=== PATIENT | female | born 1980 | race Caucasian/White ===

== ENCOUNTER → 2017-09-12 | Outpatient (CLI) | payer OTHER ==
[2017-09-12 19:06] LABS: BASO # 0.1 10^3/uL (0.0-0.2); EOS # 0.3 10^3/uL (0.0-0.50); EOS % 2.7 % (0.0-3.0); HEMATOCRIT 46.3 % (36.0-47.0); HEMOGLOBIN 15.1 g/dl (12.0-16.0); IMMATURE GRANULOCYTE % 0.3 % (0-0); LYMPH # 2.6 10^3/uL (1.5-4.5); LYMPH % 28.3 % (24.0-44.0); MEAN CORPUSCULAR HEMOGLOBIN 30.4 pg (27.0-33.0); MEAN CORPUSCULAR HGB CONC 32.6 g/dl (32.0-36.5); MEAN CORPUSCULAR VOLUME 93.2 fl (80.0-96.0); MONO # 0.6 10^3/uL (0.0-0.8); MONO % 6.4 % (0.0-5.0); NEUTROPHILS # 5.7 10^3/uL (1.8-7.7); NEUTROPHILS % 61.3 % (36.0-66.0); PLATELET COUNT, AUTOMATED 237 10^3/uL (150-450); RED BLOOD COUNT 4.97 10^6/uL (4.00-5.40); WHITE BLOOD COUNT 9.2 10^3/uL (4.0-10.0)
[2017-09-12 19:22] LABS: URIC ACID 4.8 MG/DL (2.6-6.0)
== END ==
LOC: M WUC 12:20
DX: M79.644 Pain in right finger(s) (principal)

== ENCOUNTER 2018-06-20 15:42 | Emergency (ER) | payer SELFPAY, OTHER ==
[2018-06-20] MEDS: MORPHINE 4 MG/ML 1ML VIAL/SYRINGE (J2270) IV (17:16)
[2018-06-20 17:31] LABS: BASO # 0.1 10^3/uL (0.0-0.2); BASO % 0.8 % (0.0-1.0); EOS # 0.2 10^3/uL (0.0-0.50); HEMATOCRIT 43.8 % (36.0-47.0); HEMOGLOBIN 14.4 g/dl (12.0-15.5); IMMATURE GRANULOCYTE % 0.4 % (0-3.0); LYMPH # 2.9 10^3/uL (1.5-4.5); LYMPH % 29.5 % (24.0-44.0); MEAN CORPUSCULAR HEMOGLOBIN 30.3 pg (27.0-33.0); MEAN CORPUSCULAR HGB CONC 32.9 g/dl (32.0-36.5); MONO # 0.6 10^3/uL (0.0-0.8); MONO % 5.8 % (0.0-5.0); NEUTROPHILS % 61.5 % (36.0-66.0); PLATELET COUNT, AUTOMATED 364 10^3/uL (150-450); RED BLOOD COUNT 4.76 10^6/uL (4.00-5.40); RED CELL DISTRIBUTION WIDTH 12.3 % (11.5-14.5); WHITE BLOOD COUNT 9.8 10^3/uL (4.0-10.0)
[2018-06-20 17:53] LABS: ALBUMIN 3.8 GM/DL (3.2-5.2); ALBUMIN/GLOBULIN RATIO 1.06 (1.00-1.93); ALKALINE PHOSPHATASE 77 U/L (45-117); ALT/SGPT 30 U/L (12-78); ANION GAP 8 MEQ/L (8-16); AST/SGOT 15 U/L (7-37); BILIRUBIN,DIRECT < 0.1 MG/DL (0.0-0.2); BILIRUBIN,TOTAL 0.4 MG/DL (0.2-1.0); BLOOD UREA NITROGEN 8 MG/DL (7-18); CALCIUM LEVEL 8.4 MG/DL (8.5-10.1); CARBON DIOXIDE LEVEL 26 MEQ/L (21-32); CHLORIDE LEVEL 106 MEQ/L (98-107); CREATININE FOR GFR 0.72 MG/DL (0.55-1.30); GLOMERULAR FILTRATION RATE > 60.0 (>60); GLUCOSE, FASTING 86 MG/DL (70-100); LIPASE 106 U/L (73-393); POTASSIUM SERUM 4.1 MEQ/L (3.5-5.1); SODIUM LEVEL 140 MEQ/L (136-145); TOTAL PROTEIN 7.4 GM/DL (6.4-8.2)
== END 2018-06-20 17:55 | disposition home or self-care (01) ==
LOC: M ED 15:42
DX: S20.211A Contusion of right front wall of thorax, initial encounter (principal); R10.11 Right upper quadrant pain; W01.190A Fall on same level from slipping, tripping and stumbling with subsequent striking against furniture, initial encounter; Y92.098 Other place in other non-institutional residence as the place of occurrence of the external cause; R51 Headache; J45.909 Unspecified asthma, uncomplicated; F41.9 Anxiety disorder, unspecified; F32.9 Major depressive disorder, single episode, unspecified; M06.9 Rheumatoid arthritis, unspecified; Z85.43 Personal history of malignant neoplasm of ovary; F17.200 Nicotine dependence, unspecified, uncomplicated; Z88.8 Allergy status to other drugs, medicaments and biological substances; Z91.040 Latex allergy status; Z91.041 Radiographic dye allergy status
CPT/HCPCS: J2270

== ENCOUNTER 2018-06-23 08:51 | Emergency (ER) | payer SELFPAY ==
[2018-06-23] MEDS: PERCOCET 5MG/325MG TAB PO (09:48)
== END 2018-06-23 10:48 | disposition home or self-care (01) ==
LOC: M ED 08:51
DX: S20.211A Contusion of right front wall of thorax, initial encounter (principal); W19.XXXA Unspecified fall, initial encounter; Y92.89 Other specified places as the place of occurrence of the external cause; K21.9 Gastro-esophageal reflux disease without esophagitis; R51 Headache; Z87.440 Personal history of urinary (tract) infections; F17.210 Nicotine dependence, cigarettes, uncomplicated; Z88.8 Allergy status to other drugs, medicaments and biological substances; Z91.041 Radiographic dye allergy status; Z91.040 Latex allergy status
CPT/HCPCS: 71101

== ENCOUNTER 2019-03-23 09:14 | Emergency (ER) | payer BC, OTHER ==
[~2019-03-23] VITALS: Ht 152.4 cm; Wt 72.7 kg
[~2019-03-23 09:14] MED LIST: ACET-683 PO; ALBUTEROL; PAXI40TA; PERC5TAB12 PO; ULTR50TA8 PO; [UNRECOGNIZED DRUG - CODE]
[2019-03-23] MEDS ORDERED: NS 1,000 ML IV ONE (09:30)
[2019-03-23] MEDS ORDERED: KETOROLAC 30 MG/ML VIAL (J1885) IV ONE (09:45)
[2019-03-23 10:42] LABS: BASO # 0.1 10^3/uL (0.0-0.2); BASO % 0.7 % (0.0-1.0); EOS # 0.1 10^3/uL (0.0-0.50); EOS % 1.3 % (0.0-3.0); HEMATOCRIT 45.5 % (36.0-47.0); HEMOGLOBIN 15.2 g/dl (12.0-15.5); LYMPH # 1.4 10^3/uL (1.5-4.5); MEAN CORPUSCULAR HEMOGLOBIN 31.3 pg (27.0-33.0); MEAN CORPUSCULAR HGB CONC 33.4 g/dl (32.0-36.5); MEAN CORPUSCULAR VOLUME 93.6 fl (80.0-96.0); MONO # 0.9 10^3/uL (0.0-0.8); MONO % 8.5 % (0.0-5.0); NEUTROPHILS # 8.2 10^3/uL (1.8-7.7); NEUTROPHILS % 75.9 % (36.0-66.0); PLATELET COUNT, AUTOMATED 251 10^3/uL (150-450); RED BLOOD COUNT 4.86 10^6/uL (4.00-5.40); WHITE BLOOD COUNT 10.8 10^3/uL (4.0-10.0)
[2019-03-23 10:57] LABS: HCG, SERUM QUALITATIVE NEGATIVE (NEGATIVE)
[2019-03-23 11:13] LABS: BLOOD UREA NITROGEN 10 MG/DL (7-18); CALCIUM LEVEL 8.6 MG/DL (8.5-10.1); CARBON DIOXIDE LEVEL 27 MEQ/L (21-32); CHLORIDE LEVEL 107 MEQ/L (98-107); CREATININE FOR GFR 0.73 MG/DL (0.55-1.30); GLOMERULAR FILTRATION RATE > 60.0 (>60); GLUCOSE, FASTING 82 MG/DL (70-100); MAGNESIUM LEVEL 2.1 MG/DL (1.8-2.4); SODIUM LEVEL 141 MEQ/L (136-145)
[2019-03-23 14:30] VITALS: BP 122/70
--- NOTE | 2019-03-23 20:59 | ECGEPIP ---
[facility] - ED Test Date: 2019-03-23 Pat Name: OLIVIA MITCHELL Department: Room: - Gender: Female [employer]: : 1980 Requested By: Deyanira Jones Order Number: [id number] Reading MD: Naldo Johnson Measurements Intervals [place] Rate: 88 P: 60 OH: 141 QRS: 29 QRSD: 78 T: 37 QT: 363 QTc: 441 Interpretive Statements SINUS RHYTHM BASELINE ARTIFACT AFFECTS INTERPRETATION NO PRIORS FOR COMPARISON Electronically Signed on 03-23-2019 20:59:32 EDT by Naldo Johnson
== END 2019-03-23 14:48 | disposition home or self-care (01) ==
LOC: M ED 09:14 → EDBD 09:14 → M ED 14:48
DX: L55.9 Sunburn, unspecified (principal); R55 Syncope and collapse; Z88.8 Allergy status to other drugs, medicaments and biological substances; Z91.040 Latex allergy status; Z91.041 Radiographic dye allergy status; F17.210 Nicotine dependence, cigarettes, uncomplicated
CPT/HCPCS: 36415; 80048; 83735; 84443; 84703; 85025; 93005; 93041; 94760; 96361; 96374; 99285; J1885

== ENCOUNTER 2019-09-24 10:45 | Emergency (ER) | payer BC, OTHER ==
[~2019-09-24] VITALS: Ht 154.9 cm; Wt 81.2 kg
[2019-09-24 11:55] LABS: BASO # 0.1 10^3/uL (0.0-0.2); BASO % 1.4 % (0.0-1.0); EOS # 0.3 10^3/uL (0.0-0.5); EOS % 3.8 % (0.0-3.0); HEMATOCRIT 46.9 % (36.0-47.0); HEMOGLOBIN 15.6 g/dl (12.0-15.5); LYMPH % 23.8 % (24.0-44.0); MEAN CORPUSCULAR HEMOGLOBIN 30.1 pg (27.0-33.0); MEAN CORPUSCULAR HGB CONC 33.3 g/dl (32.0-36.5); MEAN CORPUSCULAR VOLUME 90.5 fl (80.0-96.0); MONO # 0.5 10^3/uL (0.0-0.8); MONO % 5.8 % (0.0-5.0); NEUTROPHILS # 5.5 10^3/uL (1.5-8.5); NEUTROPHILS % 64.8 % (36.0-66.0); PLATELET COUNT, AUTOMATED 347 10^3/uL (150-450); RED BLOOD COUNT 5.18 10^6/uL (4.00-5.40); WHITE BLOOD COUNT 8.4 10^3/uL (4.0-10.0)
[2019-09-24 12:23] LABS: ALBUMIN 3.7 GM/DL (3.2-5.2); ALT/SGPT 46 U/L (12-78); BILIRUBIN,DIRECT < 0.1 MG/DL (0.0-0.2); BILIRUBIN,TOTAL 0.2 MG/DL (0.2-1.0); BLOOD UREA NITROGEN 9 MG/DL (7-18); CARBON DIOXIDE LEVEL 23 MEQ/L (21-32); CHLORIDE LEVEL 106 MEQ/L (98-107); CK-MB VALUE MASS < 1.0 NG/ML (<3.6); CPK CREATINE PHOSPHOKINASE 76 U/L (26-192); CREATININE FOR GFR 0.79 MG/DL (0.55-1.30); GLOMERULAR FILTRATION RATE > 60.0 (>58); GLUCOSE, FASTING 89 MG/DL (70-100); LIPASE 107 U/L (73-393); MB/CK RELATIVE INDEX 1.32 (< OR =4); POTASSIUM SERUM 4.3 MEQ/L (3.5-5.1); SODIUM LEVEL 138 MEQ/L (136-145); TOTAL PROTEIN 7.4 GM/DL (6.4-8.2); TROPONIN I < 0.02 NG/ML (< 0.10)
[2019-09-24 13:10] LABS: INFLUENZA A AMPLIFICATION NEGATIVE (NEGATIVE); INFLUENZA B AMPLIFICATION NEGATIVE (NEGATIVE)
[2019-09-24] MEDS ORDERED: ONDANSETRON 4MG/2ML VIAL (J2405) IV ONE (13:15)
[2019-09-24] MEDS ORDERED: NS 1,000 ML IV ONE (13:15)
[2019-09-24] MEDS ORDERED: IBUPROFEN 600 MG TAB PO ONE (13:30)
--- NOTE | 2019-09-24 14:28 | REP ---
Portable chest, 01:53 p.m., single AP view with the patient upright: Comparison is 02/24/2010. The lung zamudio are clear. The cardiac size is normal. The grisel, mediastinum, and skeletal structures are unremarkable. Impression: Negative portable chest. There is no interval change. Electronically Signed by Waqas Daniels MD 09/24/2019 02:19 P
[2019-09-24] MEDS ORDERED: ONDA4TAB6 PO (14:46)
[2019-09-24] MEDS ORDERED: KETO10TAB PO (14:46)
[2019-09-24 14:56] VITALS: BP 134/69
--- NOTE | 2019-09-25 20:26 | ECGEPIP ---
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
== END 2019-09-24 14:59 | disposition home or self-care (01) ==
LOC: M ED 10:45
DX: J06.9 Acute upper respiratory infection, unspecified (principal); B34.9 Viral infection, unspecified; R11.2 Nausea with vomiting, unspecified; J45.909 Unspecified asthma, uncomplicated; K21.9 Gastro-esophageal reflux disease without esophagitis; M06.9 Rheumatoid arthritis, unspecified; Z85.43 Personal history of malignant neoplasm of ovary; Z85.42 Personal history of malignant neoplasm of other parts of uterus; F17.210 Nicotine dependence, cigarettes, uncomplicated; Z91.040 Latex allergy status; Z91.041 Radiographic dye allergy status; Z88.9 Allergy status to unspecified drugs, medicaments and biological substances; Z79.899 Other long term (current) drug therapy
CPT/HCPCS: 36415; 71045; 80048; 80076; 82550; 82553; 83690; 84484; 85025; 85379; 87502; 93005; 93041; 96361; 96374; 99285; J2405

== ENCOUNTER 2020-06-27 04:44 | Emergency (ER) | payer BC, OTHER ==
[~2020-06-27] VITALS: Ht 152.4 cm; Wt 81.8 kg
[~2020-06-27 04:44] MED LIST changes: +KETO10TAB PO; +ONDA4TAB6 PO
[2020-06-27] MEDS ORDERED: IBUPROFEN 600MG TAB PO ONE (06:15)
[2020-06-27] MEDS ORDERED: oxyCODONE 5MG TAB PO ONE (06:15)
[2020-06-27 06:23] VITALS: BP 134/72
== END 2020-06-27 07:25 | disposition home or self-care (01) ==
LOC: M ED 04:44
DX: K02.9 Dental caries, unspecified (principal); F17.200 Nicotine dependence, unspecified, uncomplicated; Z88.8 Allergy status to other drugs, medicaments and biological substances; Z91.040 Latex allergy status; Z91.041 Radiographic dye allergy status

== ENCOUNTER → 2020-11-03 | Outpatient (CLI) | payer BC ==
--- NOTE | 2020-11-03 15:56 | REPMRS ---
Patient History The patient states she has not had a clinical breast exam in over a year. Patient has history of other cancer at age 26. Family history of endometrial cancer in mother, breast cancer in maternal grandmother, lung cancer in father. 3D TOMOSYNTHESIS WAS PERFORMED. [facility] lifetime risk for [facility] cancer is 13.7%. [facility]. Digital Woman Screen Mammo: November 03, 2020 - Exam #: [id number] Bilateral CC and MLO view(s) were taken. Technologist: Jolanta Brown, Technologist No prior studies available for comparison. FINDINGS: There are scattered fibroglandular densities. There is a mild amount of residual fibroglandular tissue which is fairly symmetric. There is no dominant mass, architectural distortion, or clustered microcalcification suggestive of malignancy. Assessment: BI-RADS/ACR category 1 mammogram. Negative Mammogram. Recommendation Routine screening mammogram in 1 year (for women over age 40). This mammogram was interpreted with the aid of an FDA-approved computer-aided dectection system. Electronically Signed By: Waqas Cowart MD 11/03/20 [id number]
== END ==
LOC: M WHC 14:57
PROVIDERS: ATTEND Nurse Practitioner Family
DX: Z12.31 Encounter for screening mammogram for malignant neoplasm of breast (principal); Z85.9 Personal history of malignant neoplasm, unspecified; Z80.49 Family history of malignant neoplasm of other genital organs; Z80.1 Family history of malignant neoplasm of trachea, bronchus and lung

== ENCOUNTER → 2021-04-28 | Outpatient (CLI) | payer BC, OTHER ==
[2021-04-28 10:39] LABS: BASO # 0.1 10^3/uL (0.0-0.2); BASO % 0.9 % (0.0-1.0); EOS # 0.4 10^3/uL (0.0-0.5); EOS % 3.7 % (0.0-3.0); HEMATOCRIT 48.7 % (36.0-47.0); HEMOGLOBIN 16.2 g/dl (12.0-15.5); LYMPH # 2.2 10^3/uL (1.5-5.0); LYMPH % 22.8 % (24.0-44.0); MEAN CORPUSCULAR HEMOGLOBIN 29.9 pg (27.0-33.0); MEAN CORPUSCULAR HGB CONC 33.3 g/dl (32.0-36.5); MEAN CORPUSCULAR VOLUME 89.9 fl (80.0-96.0); MONO # 0.7 10^3/uL (0.0-0.8); MONO % 7.2 % (2.0-8.0); NEUTROPHILS # 6.2 10^3/uL (1.5-8.5); NEUTROPHILS % 64.9 % (36.0-66.0); PLATELET COUNT, AUTOMATED 278 10^3/uL (150-450); RED BLOOD COUNT 5.42 10^6/uL (4.00-5.40); WHITE BLOOD COUNT 9.6 10^3/uL (4.0-10.0)
[2021-04-28 11:04] LABS: ALBUMIN 3.4 GM/DL (3.2-5.2); ALT/SGPT 42 U/L (12-78); BILIRUBIN,TOTAL 0.3 MG/DL (0.2-1.0); BLOOD UREA NITROGEN 14 MG/DL (7-18); CALCIUM LEVEL 8.4 MG/DL (8.5-10.1); CARBON DIOXIDE LEVEL 26 MEQ/L (21-32); CHLORIDE LEVEL 109 MEQ/L (98-107); CHOLESTEROL LEVEL 259 MG/DL (<200); CHOLESTEROL RISK RATIO 5.078 (<5); CREATININE FOR GFR 0.74 MG/DL (0.55-1.30); FREE T4 0.87 NG/DL (0.76-1.46); GLOMERULAR FILTRATION RATE > 60.0 (>58); GLUCOSE, FASTING 89 MG/DL (70-100); HDL CHOLESTEROL 51 MG/DL (>40); LDL CHOLESTEROL 167 MG/DL (<100); MAGNESIUM LEVEL 2.4 MG/DL (1.8-2.4); NON-HDL-C 208 MG/DL; POTASSIUM SERUM 4.1 MEQ/L (3.5-5.1); SODIUM LEVEL 139 MEQ/L (136-145); TRIGLYCERIDES LEVEL 205 MG/DL (<150)
[2021-04-28 11:56] LABS: TOTAL 25(OH) VITAMIN D 18.1 NG/ML (30.0-100.0)
== END ==
LOC: M LAB 09:32
PROVIDERS: ATTEND Nurse Practitioner Family
DX: F41.8 Other specified anxiety disorders (principal); Z13.220 Encounter for screening for lipoid disorders; R25.2 Cramp and spasm

== ENCOUNTER 2021-05-03 02:06 | Observation (INO) | payer BC, OTHER ==
[~2021-05-03] VITALS: Ht 154.9 cm; Wt 81.9 kg
[2021-05-03] MEDS ORDERED: ALBU8.5H PO (02:18)
[2021-05-03] MEDS ORDERED: VALA1TAB5 PO (02:18)
[2021-05-03] MEDS ORDERED: LEXA1TAB PO (02:18)
[2021-05-03 03:57] LABS: BASO # 0.1 10^3/uL (0.0-0.2); BASO % 0.8 % (0.0-1.0); EOS # 0.4 10^3/uL (0.0-0.5); EOS % 3.8 % (0.0-3.0); HEMOGLOBIN 14.7 g/dl (12.0-15.5); LYMPH # 2.5 10^3/uL (1.5-5.0); LYMPH % 21.4 % (24.0-44.0); MEAN CORPUSCULAR HEMOGLOBIN 30.2 pg (27.0-33.0); MEAN CORPUSCULAR HGB CONC 33.4 g/dl (32.0-36.5); MEAN CORPUSCULAR VOLUME 90.5 fl (80.0-96.0); MONO # 0.8 10^3/uL (0.0-0.8); MONO % 6.8 % (2.0-8.0); NEUTROPHILS # 7.8 10^3/uL (1.5-8.5); NEUTROPHILS % 66.7 % (36.0-66.0); PLATELET COUNT, AUTOMATED 315 10^3/uL (150-450); RED BLOOD COUNT 4.86 10^6/uL (4.00-5.40); WHITE BLOOD COUNT 11.7 10^3/uL (4.0-10.0)
[2021-05-03] MEDS ORDERED: GI COCKTAIL 50ML BTL(HYOSCYAMINE/MAALOX/LIDOCAINE VISCOUS)(1:3:1) PO ONE (04:05)
[2021-05-03] MEDS ORDERED: PANTOPRAZOLE 40MG VIAL (C9113 PER 1) IV ONE (04:05)
[2021-05-03 04:23] LABS: ALBUMIN 3.1 GM/DL (3.2-5.2); ALT/SGPT 42 U/L (12-78); BILIRUBIN,DIRECT < 0.1 MG/DL (0.0-0.2); BILIRUBIN,TOTAL 0.2 MG/DL (0.2-1.0); BLOOD UREA NITROGEN 13 MG/DL (7-18); CALCIUM LEVEL 8.9 MG/DL (8.5-10.1); CARBON DIOXIDE LEVEL 26 MEQ/L (21-32); CHLORIDE LEVEL 110 MEQ/L (98-107); CK-MB VALUE MASS 1.1 NG/ML (<3.6); CPK CREATINE PHOSPHOKINASE 91 U/L (26-192); CREATININE FOR GFR 0.64 MG/DL (0.55-1.30); GLOMERULAR FILTRATION RATE > 60.0 (>58); GLUCOSE, FASTING 103 MG/DL (70-100); LIPASE 152 U/L (73-393); MB/CK RELATIVE INDEX 1.21 (< OR =4); SODIUM LEVEL 140 MEQ/L (136-145); TOTAL PROTEIN 6.6 GM/DL (6.4-8.2); TROPONIN I < 0.02 NG/ML (< 0.10)
[2021-05-03] MEDS ORDERED: ISOVUE-370 76% 100ML VIAL As Ordered ONE (04:56)
--- NOTE | 2021-05-03 05:52 | REPVR ---
PROCEDURE INFORMATION: Exam: XR Chest Exam date and time: 05/03/2021 5:06 AM Age: 40 years old Clinical indication: Other: Chest pain TECHNIQUE: Imaging protocol: XR of the chest. Views: 1 view. COMPARISON: ND Chest, 1 view 09/24/2019 1:52 PM FINDINGS: Lungs: Unremarkable. No consolidation. Pleural spaces: Unremarkable. No pleural effusion. No pneumothorax. Heart/Mediastinum: Unremarkable. No cardiomegaly. Bones/joints: Unremarkable. IMPRESSION: No acute findings. Electronically signed by: Cordell Valdez On 05/03/2021 05:51:38 AM
--- NOTE | 2021-05-03 06:00 | REPVR ---
PROCEDURE INFORMATION: Exam: CT Abdomen And Pelvis Without Contrast Exam date and time: 05/03/2021 4:48 AM Age: 40 years old Clinical indication: Other: Upper abd pain TECHNIQUE: Imaging protocol: Computed tomography of the abdomen and pelvis without contrast. Radiation optimization: All CT scans at this facility use at least one of these dose optimization techniques: automated exposure control; mA and/or kV adjustment per patient size (includes targeted exams where dose is matched to clinical indication); or iterative reconstruction. COMPARISON: CT ABD PELVIS W/O CONTRAST 06/20/2018 4:49 PM FINDINGS: Lungs: There is a 6 mm left lower lobe calcified granuloma. Liver: Normal. No mass. Gallbladder and bile ducts: Normal. No calcified stones. No ductal dilation. Pancreas: Normal. No ductal dilation. Spleen: Normal. No splenomegaly. Adrenal glands: Normal. No mass. Kidneys and ureters: Normal. No hydronephrosis. Stomach and bowel: Unremarkable. No obstruction. No mucosal thickening. Appendix: No evidence of appendicitis. Intraperitoneal space: Unremarkable. No free air. No significant fluid collection. Vasculature: Unremarkable. No abdominal aortic aneurysm. Lymph nodes: Unremarkable. No enlarged lymph nodes. Urinary bladder: Unremarkable as visualized. Reproductive: The patient is status post hysterectomy. There is no adnexal mass. Bones/joints: Unremarkable. No acute fracture. Soft tissues: Unremarkable. IMPRESSION: No CT evidence of acute abdominal or pelvic pathology. Electronically signed by: Cordell Valdez On 05/03/2021 05:59:44 AM
[2021-05-03] MEDS ORDERED: MORPHINE 2 MG/ML 1ML VIAL (J2270) IV ONE (06:10)
[2021-05-03] MEDS ORDERED: HOME MED LIST COMPLETE! XX SCH (06:15)
--- NOTE | 2021-05-03 06:30 | ECGEPIP ---
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
--- NOTE | 2021-05-03 06:53 | REPVR ---
PROCEDURE INFORMATION: Exam: US Duplex Lower Extremity Veins, Bilateral Exam date and time: 05/03/2021 6:47 AM Age: 40 years old Clinical indication: Abnormal findings; Abnormal lab test; Elevated d-dimer; Additional info: Chest pain elev ddimer R/O dvt TECHNIQUE: Imaging protocol: Real-time duplex ultrasound of the extremities with 2-D haley scale, color Doppler flow and spectral waveform analysis with image documentation. Complete exam focused on the bilateral lower extremity veins. COMPARISON: CT ABD PELVIS W/O CONTRAST 05/03/2021 4:45 AM FINDINGS: Right deep veins: Unremarkable. The common femoral, femoral, proximal profunda femoral and popliteal veins are patent without thrombus. Normal Doppler waveforms. Normal compressibility and/or augmentation response. Right superficial veins: Saphenofemoral junction is patent without thrombus. Left deep veins: Unremarkable. The common femoral, femoral, proximal profunda femoral and popliteal veins are patent without thrombus. Normal Doppler waveforms. Normal compressibility and/or augmentation response. Left superficial veins: Saphenofemoral junction is patent without thrombus. Soft tissues: Unremarkable. IMPRESSION: No evidence of deep vein thrombosis. Electronically signed by: Cordell Valdez On 05/03/2021 06:53:16 AM
[2021-05-03] MEDS ORDERED: ACETAMINOPHEN TAB 650MG DOSE (2X325MG) PO PRN (08:00)
[2021-05-03] MEDS ORDERED: ALBUTEROL 90 MCG/ACT 8GM HFA INHALER INH PRN (08:00)
[2021-05-03] MEDS ORDERED: valACYclovir HCL 500 MG TAB PO PRN (08:00)
--- NOTE | 2021-05-03 08:28 | HPEPDOC ---
General Date of Admission 05/03/21 Date of Service: May 03, 2021 Chief Complaint The patient is a 40-year-old female admitted with a reason for visit of Chest Pain. Source: Patient Exam Limitations: No limitations History of Present Illness Patient is 40 years old female with past medical history of pulmonary emboli in 2012, asthma, uterine cancer status post ureterectomy presented to hospital with substernal chest pain. Patient stated that yesterday evening she developed substernal chest pain associated with shortness of breath. Pain was 6 out of 10 radiated to her back, intermittent. Shortness of breath was alleviated by inhaler. Patient denied fever, chills, nausea, vomiting diarrhea or dysuria. Of note in 2012 patient reported that she was diagnosed with pulmonary emboli in [facility]. She was noncompliant to treatment of PE and she stopped taking the medication. Also she reported that both parents had history of PE. In ER patient was found to have normal heart rate, normal oxygen saturation, white blood count of 11.7, hemoglobin 14.7, D-dimer 628.4. Doppler ultrasound negative for DVT, CT abdomen pelvis negative for acute pathology. EKG shows normal sinus rhythm Home Medications Scheduled Escitalopram Oxalate (Lexapro) 10 Mg Tablet, 10 MG PO DAILY, (Reported) Scheduled PRN Albuterol Sulfate (Albuterol Sulfate Hfa) 8.5 Gm Hfa.aer.ad, 2 PUFFS PO PRN PRN for BRONCHOSPASM, (Reported) Valacyclovir HCl (Valacyclovir) 1,000 Mg Tablet, 1,000 MG PO PRN PRN for SHINGLES, (Reported) Allergies Coded Allergies: Contrast Media (Verified Allergy, Intermediate, RADIOPAQUE, SWELLING OF LEG, ITCHY ARM & LEG, 03/23/19) iodine (Verified Allergy, Intermediate, SWELLING OF LEG, ITCHY ARM & LEG, 03/23/19) iopamidol (Verified Allergy, Intermediate, SWELLING OF LEG, ITCHY ARM & LEG, 03/23/19) latex (Verified Allergy, Unknown, 03/23/19) Past Medical History Medical History pulmonary emboli in 2012, asthma, uterine cancer status post ureterectomy Surgical History Ureterectomy Family History Both parents had history of PE, father from lung cancer Social History * Smoker: current smoker Alcohol: occationally Drugs: denies A-FIB/CHADSVASC A-FIB History Current/History of A-Fib/PAF?: No Current PO Anticoag Therapy: No Review of Systems Constitutional: Denies: Chills, Fever Eyes: Denies: Pain ENT: Denies: Head Aches Skin: Denies: Rash, Lesions Pulmonary: Reports: Dyspnea Cardiovascular: Reports: Chest Pain Gastrointestinal: Denies: Nausea Hematologic: Denies: Bruising, Bleeding Excessively Endocrine: Denies: Polydipsia Musculoskeletal: Denies: Neck Pain Neurological: Denies: Weakness Psych: Reports: Mood Normal Physical Examination General Exam: Positive: Alert Eye Exam: Positive: PERRLA ENT Exam: Positive: Atraumatic Neck Exam: Positive: Supple; Negative: JVD Chest Exam: Positive: Clear to auscultation Heart Exam: Positive: Rate Normal Telemetry: Positive: No significant arrhythmia Abdomen Exam: Positive: Normal bowel sounds Extremity Exam: Negative: Clubbing Skin Exam: Positive: Nl turgor and temperature Neuro Exam: Positive: Normal Gait Psych Exam: Positive: Mental status NL Vital Signs Vital Signs Date Time Temp Pulse Resp B/P (MAP) Pulse Ox O2 Delivery O2 Flow Rate FiO2 05/03/21 07:44 16 05/03/21 06:51 62 97 05/03/21 06:47 92/50 Room Air 05/03/21 02:07 98.4 Laboratory Data Labs 24H Laboratory Tests 2 05/03/21 03:47: D-Dimer, Quantitative 628.41H 05/03/21 03:48: Immature Granulocyte % (Auto) 0.5, Neutrophils (%) (Auto) 66.7H, Lymphocytes (%) (Auto) 21.4L, Monocytes (%) (Auto) 6.8, Eosinophils (%) (Auto) 3.8H, Basophils (%) (Auto) 0.8, Neutrophils # (Auto) 7.8, Lymphocytes # (Auto) 2.5, Monocytes # (Auto) 0.8, Eosinophils # (Auto) 0.4, Basophils # (Auto) 0.1, Nucleated Red Blood Cells % (auto) 0.0, Anion Gap 4L, Glomerular Filtration Rate > 60.0, Calcium Level 8.9, Total Bilirubin 0.2, Direct Bilirubin < 0.1, Aspartate Amino Transf (AST/SGOT) 14, Alanine Aminotransferase (ALT/SGPT) 42, Alkaline Phosphatase 84, Total Creatine Kinase 91, Creatine Kinase MB 1.1, Creatine Kinase MB Relative Index 1.21, Troponin I < 0.02, Total Protein 6.6, Albumin 3.1L, Albumin/Globulin Ratio 0.9L, Lipase 152 05/03/21 07:45: CBC/BMP Laboratory Tests 05/03/21 03:48 Assessment/Plan Patient is 40 years old female with past medical history of pulmonary emboli in 2012, asthma, uterine cancer status post ureterectomy presented to hospital with substernal chest pain. Patient stated that yesterday evening she developed substernal chest pain associated with shortness of breath. Pain was 6 out of 10 radiated to her back, intermittent. Shortness of breath was alleviated by inhaler. Patient denied fever, chills, nausea, vomiting diarrhea or dysuria. Of note in 2012 patient reported that she was diagnosed with pulmonary emboli in [facility]. She was noncompliant to treatment of PE and she stopped taking the medication. Also she reported that both parents had history of PE. In ER patient was found to have normal heart rate, normal oxygen saturation, white blood count of 11.7, hemoglobin 14.7, D-dimer 628.4. Doppler ultrasound negative for DVT, CT abdomen pelvis negative for acute pathology. EKG shows normal sinus rhythm Problems (1) Elevated d-dimer Status: Acute Problem Text: There is concern for PE given previous history of pulmonary emboli, elevated D-dimer, family history, both parents had blood clots Patient reported that in 2012 she was diagnosed with unprovoked PE, but she was noncompliant to treatment I started empirically Eliquis Patient has allergy for contrast media, will proceed with VQ scan tomorrow Work-up for PE ordered Patient will need close follow-up with [employer] professor (2) Chest pain Status: Acute Problem Text: Resolved EKG negative for acute ischemic changes Troponin negative Continue to monitor Telemetry (3) Asthma Status: Chronic Problem Text: Continue inhalers Not in acute exacerbation Plan / VTE VTE Prophylaxis Ordered?: Yes CASIMIRO NAJERA DO May 03, 2021 08:28
[2021-05-03 08:29] LABS: RSV AMPLIFICATION NEGATIVE (NEGATIVE)
[2021-05-03 09:40] LABS: C REACTIVE PROTEIN QUANTITATIV 0.31 MG/DL (0.00-0.30)
[2021-05-03 10:17] VITALS: BP 125/70
[2021-05-03 10:24] LABS: TROPONIN I < 0.02 NG/ML (< 0.10)
[2021-05-03] MEDS: APIXABAN 5 MG TAB (ELIQUIS) PO SCH ×2 (12:02→21:30)
[2021-05-03] MEDS: ESCITALOPRAM OXALATE 10 MG TAB (LEXAPRO) PO SCH (12:02)
[2021-05-03 22:00] VITALS: BP 111/58
[2021-05-04 06:00] VITALS: BP 118/54
[2021-05-04 07:51] LABS: HEMATOCRIT 43.3 % (36.0-47.0); HEMOGLOBIN 14.3 g/dl (12.0-15.5); MEAN CORPUSCULAR VOLUME 90.8 fl (80.0-96.0); PLATELET COUNT, AUTOMATED 283 10^3/uL (150-450); RED BLOOD COUNT 4.77 10^6/uL (4.00-5.40); WHITE BLOOD COUNT 8.1 10^3/uL (4.0-10.0)
--- NOTE | 2021-05-04 08:10 | REP ---
INDICATION: PE. COMPARISON: Comparison is made with portable chest x-ray from 03 May 2021. TECHNIQUE: 1.0 mCi of technetium 99m DTPA aerosol is utilized for the ventilation study and is followed by a 5.5 mCi dose of intravenous technetium 99m MAA for the perfusion study. A sequence of 8 planar images are acquired for each portion of the study. FINDINGS: There is mild central bronchial deposition of inspired ventilatory tracer on the ventilation portion of the study. There is homogeneous distribution of perfusion tracer. There is a small matched defect in the left upper lobe and another in the left lower lobe. No mismatch defect is seen. IMPRESSION: Low probability scan for pulmonary embolism. <Electronically signed by Rohith Palacios > 05/04/21 [id number]
[2021-05-04 08:25] LABS: ALBUMIN 2.8 GM/DL (3.2-5.2); ALT/SGPT 41 U/L (12-78); BILIRUBIN,TOTAL 0.3 MG/DL (0.2-1.0); BLOOD UREA NITROGEN 12 MG/DL (7-18); CALCIUM LEVEL 8.7 MG/DL (8.5-10.1); CARBON DIOXIDE LEVEL 26 MEQ/L (21-32); CHLORIDE LEVEL 109 MEQ/L (98-107); CREATININE FOR GFR 0.64 MG/DL (0.55-1.30); GLOMERULAR FILTRATION RATE > 60.0 (>58); GLUCOSE, FASTING 86 MG/DL (70-100); MAGNESIUM LEVEL 2.4 MG/DL (1.8-2.4); SODIUM LEVEL 139 MEQ/L (136-145); TOTAL PROTEIN 6.1 GM/DL (6.4-8.2)
[2021-05-04] MEDS: APIXABAN 5 MG TAB (ELIQUIS) PO SCH (09:20)
[2021-05-04] MEDS: ESCITALOPRAM OXALATE 10 MG TAB (LEXAPRO) PO SCH (09:21)
[2021-05-04] MEDS ORDERED: ELIQ2.5T PO (11:07)
--- NOTE | 2021-05-04 12:31 | DS.PDOC ---
Discharge Summary General Date of Admission May 03, 2021 at 02:07 Date of Discharge 05/04/21 Discharge Summary PROCEDURES PERFORMED DURING STAY: [None]. ADMITTING DIAGNOSES: Elevated d-dimer Chest pain Asthma DISCHARGE DIAGNOSES: Elevated d-dimer Chest pain Asthma COMPLICATIONS/CHIEF COMPLAINT: Chest Pain. HISTORY OF PRESENT ILLNESS: Patient is 40 years old female with past medical history of pulmonary emboli in 2012, asthma, uterine cancer status post ureterectomy presented to hospital with substernal chest pain. Patient stated that yesterday evening she developed substernal chest pain associated with shortness of breath. Pain was 6 out of 10 radiated to her back, intermittent. Shortness of breath was alleviated by inhaler. Patient denied fever, chills, nausea, vomiting diarrhea or dysuria. Of note in 2012 patient reported that she was diagnosed with pulmonary emboli in [facility]. She was noncompliant to treatment of PE and she stopped taking the medication. Also she reported that both parents had history of PE. In ER patient was found to have normal heart rate, normal oxygen saturation, white blood count of 11.7, hemoglobin 14.7, D-dimer 628.4. Doppler ultrasound negative for DVT, CT abdomen pelvis negative for acute pathology. EKG shows normal sinus rhythm HOSPITAL COURSE: During the hospital stay the following issue addressed (1) Elevated d-dimer There is concern for PE given previous history of pulmonary emboli, elevated D- dimer, family history, both parents had blood clots Patient reported that in 2012 she was diagnosed with unprovoked PE, but she was noncompliant to treatment I started empirically Eliquis Patient has allergy for contrast media, VQ scan shows low probability of PE Work-up for PE pending I talked to [facility] compliance coordinator Dr Barrett he recommended to continue treatment with Eliquis 2.5 twice daily after discharge (2) Chest pain Resolved EKG negative for acute ischemic changes Troponin negative (3) Asthma Continue inhalers Not in acute exacerbation DISCHARGE MEDICATIONS: Please see below. ALLERGIES: Please see below. PHYSICAL EXAMINATION ON DISCHARGE: VITAL SIGNS: Please see below. General Exam: Positive: Alert Eye Exam: Positive: PERRLA ENT Exam: Positive: Atraumatic Neck Exam: Positive: Supple; Negative: JVD Chest Exam: Positive: Clear to auscultation Heart Exam: Positive: Rate Normal Telemetry: Positive: No significant arrhythmia Abdomen Exam: Positive: Normal bowel sounds Extremity Exam: Negative: Clubbing Skin Exam: Positive: Nl turgor and temperature Neuro Exam: Positive: Normal Gait Psych Exam: Positive: Mental status NL LABORATORY DATA: Please see below. IMAGING: VQ scan shows low probability of PE PROGNOSIS: Fair ACTIVITY: [As tolerated]. DIET: Regular ITEMS TO FOLLOWUP ON ON OUTPATIENT: Follow-up with Dr. Barrett DISCHARGE CONDITION: [Stable]. TIME SPENT ON DISCHARGE: 40 minutes. Vital Signs/I&Os Vital Signs Date Time Temp Pulse Resp B/P (MAP) Pulse Ox O2 Delivery O2 Flow Rate FiO2 05/04/21 06:00 97.8 60 17 118/54 (75) 98 Room Air I&O- Last 24 Hours up to 6 AM 05/04/21 06:00 Intake Total 1255 ml Output Total 550 ml Balance 705 ml Laboratory Data Labs 24H Laboratory Tests 2 05/04/21 06:47: Nucleated Red Blood Cells % (auto) 0.0, Anion Gap 4L, Glomerular Filtration Rate > 60.0, Calcium Level 8.7, Magnesium Level 2.4, Total Bilirubin 0.3, Aspartate Amino Transf (AST/SGOT) 16, Alanine Aminotransferase (ALT/SGPT) 41, Alkaline Phosphatase 70, Total Protein 6.1L, Albumin 2.8L, Albumin/Globulin Ratio 0.8L CBC/BMP Laboratory Tests 05/04/21 06:47 Discharge Medications Scheduled Apixaban (Eliquis) 2.5 Mg Tablet, 2.5 MG PO BID Escitalopram Oxalate (Lexapro) 10 Mg Tablet, 10 MG PO DAILY, (Reported) Scheduled PRN Albuterol Sulfate (Albuterol Sulfate Hfa) 8.5 Gm Hfa.aer.ad, 2 PUFFS PO Q4H PRN for BRONCHOSPASM, (Reported) Valacyclovir HCl (Valacyclovir) 1,000 Mg Tablet, 1,000 MG PO TID PRN for SHINGLES, (Reported) USE FOR SHINGLES FLARE UPS Allergies Coded Allergies: Contrast Media (Verified Allergy, Intermediate, RADIOPAQUE, SWELLING OF LEG, ITCHY ARM & LEG, 03/23/19) iodine (Verified Allergy, Intermediate, SWELLING OF LEG, ITCHY ARM & LEG, 03/23/19) iopamidol (Verified Allergy, Intermediate, SWELLING OF LEG, ITCHY ARM & LEG, 7/19/19) latex (Verified Allergy, Unknown, 03/23/19) CASIMIRO NAJERA DO May 04, 2021 12:31
--- NOTE | 2021-05-04 18:59 | ECHO ---
ECHOCARDIOGRAM DATE OF PROCEDURE: 05/04/2021 Age: 40 Gender: Female Height: 152 cm Weight: 82 kg REFERRING PHYSICIAN: Tejas Espinoza DO INDICATION: Chest pain. MEASUREMENTS: IVS 1.0 cm LV 3.4 cm LVPW 0.7 cm LA 3.2 cm Aorta 2.8 cm IVC 1.9 cm DOPPLER MEASUREMENT Mitral E 72 Mitral A 60 E prime septal 9.4 E prime lateral 15.7 FINDINGS: This study is of acceptable technical quality. The patient is in sinus rhythm. Normal LV size with normal LV systolic function, estimated LVEF 60% to 65%. Normal RV size and systolic function. Both atria appear normal. The aortic, mitral, and tricuspid valves appear normal. Pulmonic valve was poorly visualized. The aortic root is normal. Aortic arch also appears normal. Abdominal aorta was not well seen. No pericardial effusion is noted. Inferior vena cava is in upper limits of normal size. Doppler interrogation reveals competent aortic, mitral, and tricuspid valves. Mitral inflow pattern and tissue Doppler imaging of the mitral annulus revealed normal diastolic function. CONCLUSIONS: 1. Study is of acceptable technical quality. Underlying sinus rhythm. 2. Normal LV size with normal LV systolic and diastolic function. 3. No significant valvular disease. 4. Likely normal central venous pressure, unable to estimate pulmonary artery pressure, but no signs to suggest pulmonary hypertension. 5. Essentially normal echocardiogram.
[2021-05-10] MEDS ORDERED: APIXABAN 5 MG TAB (ELIQUIS) PO SCH (09:00)
== END 2021-05-04 12:49 | disposition home or self-care (01) ==
LOC: M ED 02:06 → M ED INP 02:07 → ENRESERV 09:00 → M MSPAV 10:25
PROVIDERS: ADMIT Internal Medicine; ATTEND Internal Medicine
DX: R79.1 Abnormal coagulation profile (principal); R07.9 Chest pain, unspecified; J45.909 Unspecified asthma, uncomplicated; Z86.711 Personal history of pulmonary embolism; Z79.01 Long term (current) use of anticoagulants; Z91.041 Radiographic dye allergy status; Z91.040 Latex allergy status; Z88.0 Allergy status to penicillin; F17.218 Nicotine dependence, cigarettes, with other nicotine-induced disorders
CPT/HCPCS: 36415; 71045; 74176; 78582; 80048; 80053; 80076; 81240; 82550; 82553; 83690; 83735; 84484; 85025; 85027; 85300; 85301; 85303; 85305; 85379; 85384; 85730; 86038; 86140; 86147; 87631; 93005; 93041; 93306; 93970; 94760; 96374; 96375; 99285; A9540; A9567; C9113; J2270

== ENCOUNTER 2021-12-13 02:09 | Emergency (ER) | payer BC, OTHER ==
[~2021-12-13] VITALS: Ht 154.9 cm; Wt 81.6 kg
[~2021-12-13 02:09] MED LIST changes: +ALBU8.5H PO; +DRIS50003 PO; +ELIQ2.5T PO; +LEXA1TAB PO; +MONT10TA97 PO; +VALA1TAB5 PO
[2021-12-13 02:49] LABS: BASO # 0.1 10^3/uL (0.0-0.2); EOS # 0.4 10^3/uL (0.0-0.5); EOS % 3.3 % (0.0-3.0); HEMATOCRIT 43.9 % (36.0-47.0); HEMOGLOBIN 14.7 g/dl (12.0-15.5); LYMPH # 3.9 10^3/uL (1.5-5.0); LYMPH % 34.4 % (24.0-44.0); MEAN CORPUSCULAR HEMOGLOBIN 30.4 pg (27.0-33.0); MEAN CORPUSCULAR HGB CONC 33.5 g/dl (32.0-36.5); MEAN CORPUSCULAR VOLUME 90.9 fl (80.0-96.0); MONO # 0.7 10^3/uL (0.0-0.8); MONO % 6.1 % (2.0-8.0); NEUTROPHILS # 6.2 10^3/uL (1.5-8.5); NEUTROPHILS % 54.7 % (36.0-66.0); PLATELET COUNT, AUTOMATED 331 10^3/uL (150-450); RED BLOOD COUNT 4.83 10^6/uL (4.00-5.40); WHITE BLOOD COUNT 11.4 10^3/uL (4.0-10.0)
[2021-12-13 03:01] LABS: HCG, SERUM QUALITATIVE NEGATIVE (NEGATIVE)
[2021-12-13 03:07] LABS: BLOOD UREA NITROGEN 18 MG/DL (7-18); CALCIUM LEVEL 8.5 MG/DL (8.5-10.1); CARBON DIOXIDE LEVEL 23 MEQ/L (21-32); CHLORIDE LEVEL 106 MEQ/L (98-107); CREATININE FOR GFR 0.74 MG/DL (0.55-1.30); GLOMERULAR FILTRATION RATE > 60.0 (>58); GLUCOSE, FASTING 88 MG/DL (70-100); POTASSIUM SERUM 4.2 MEQ/L (3.5-5.1); SODIUM LEVEL 141 MEQ/L (136-145)
[2021-12-13 03:11] LABS: CK-MB VALUE MASS < 1.0 NG/ML (<3.6); CPK CREATINE PHOSPHOKINASE 250 U/L (26-192)
[2021-12-13] MEDS ORDERED: methylPREDNISolone 125MG 2ML VIAL IV ONE (03:50)
[2021-12-13] MEDS ORDERED: GI COCKTAIL 50ML BTL(HYOSCYAMINE/MAALOX/LIDOCAINE VISCOUS)(1:3:1) PO ONE (03:50)
[2021-12-13] MEDS ORDERED: diphenhydrAMINE 50MG/ML VIAL (J1200) IV ONE (03:50)
[2021-12-13] MEDS ORDERED: ISOVUE-370 76% 100ML VIAL As Ordered ONE (04:10)
[2021-12-13 04:25] LABS: CK-MB VALUE MASS 1.1 NG/ML (<3.6); MB/CK RELATIVE INDEX 0.79 (< OR =4)
[2021-12-13 06:00] VITALS: BP 106/62
[2021-12-13] MEDS ORDERED: FAMOTIDINE 20 MG TAB PO ONE (06:00)
[2021-12-13] MEDS ORDERED: PANTOPRAZOLE 40MG VIAL IV ONE (06:00)
[2021-12-13] MEDS ORDERED: SUCRALFATE 1 GM TAB PO ONE (06:00)
[2021-12-13] MEDS ORDERED: CARA1TAB6 PO (06:01)
[2021-12-13] MEDS ORDERED: PEPC1TAB5 PO (06:01)
[2021-12-13] MEDS ORDERED: PROT1TAB2 PO (06:01)
== END 2021-12-13 06:23 | disposition home or self-care (01) ==
LOC: M ED 02:09
DX: R07.89 Other chest pain (principal); R11.0 Nausea; F99 Mental disorder, not otherwise specified; Z86.711 Personal history of pulmonary embolism; Z79.899 Other long term (current) drug therapy; Z79.01 Long term (current) use of anticoagulants; Z88.8 Allergy status to other drugs, medicaments and biological substances; Z91.040 Latex allergy status; Z91.041 Radiographic dye allergy status; F17.210 Nicotine dependence, cigarettes, uncomplicated
CPT/HCPCS: 71045; 71275; 80048; 82550; 82553; 84484; 84703; 85025; 93005; 93041; 94760; 96374; 96375; 99285; C9113; J1200; J2930; Q9967

== ENCOUNTER 2022-04-27 03:35 | Emergency (ER) | payer BC, OTHER ==
[~2022-04-27] VITALS: Ht 154.9 cm; Wt 81.8 kg
[~2022-04-27 03:35] MED LIST changes: +CARA1TAB6 PO; +PEPC1TAB5 PO; +PROT1TAB2 PO
[2022-04-27 05:18] LABS: BASO # 0.1 10^3/uL (0.0-0.2); BASO % 0.9 % (0.0-1.0); EOS # 0.6 10^3/uL (0.0-0.5); EOS % 5.4 % (0.0-3.0); HEMOGLOBIN 13.6 g/dl (12.0-15.5); LYMPH # 2.1 10^3/uL (1.5-5.0); LYMPH % 19.5 % (24.0-44.0); MEAN CORPUSCULAR HGB CONC 33.2 g/dl (32.0-36.5); MEAN CORPUSCULAR VOLUME 90.5 fl (80.0-96.0); MONO # 0.8 10^3/uL (0.0-0.8); MONO % 7.3 % (2.0-8.0); NEUTROPHILS # 7.1 10^3/uL (1.5-8.5); NEUTROPHILS % 66.3 % (36.0-66.0); PLATELET COUNT, AUTOMATED 311 10^3/uL (150-450); RED BLOOD COUNT 4.53 10^6/uL (4.00-5.40); WHITE BLOOD COUNT 10.8 10^3/uL (4.0-10.0)
[2022-04-27 05:41] LABS: BLOOD UREA NITROGEN 12 MG/DL (7-18); CARBON DIOXIDE LEVEL 25 MEQ/L (21-32); CHLORIDE LEVEL 108 MEQ/L (98-107); CREATININE FOR GFR 0.64 MG/DL (0.55-1.30); GLOMERULAR FILTRATION RATE > 60.0 (>58); GLUCOSE, FASTING 103 MG/DL (70-100); POTASSIUM SERUM 4.1 MEQ/L (3.5-5.1); SODIUM LEVEL 136 MEQ/L (136-145)
[2022-04-27 05:55] LABS: CK-MB VALUE MASS < 1.0 NG/ML (<3.6); CPK CREATINE PHOSPHOKINASE 81 U/L (26-192); MB/CK RELATIVE INDEX 1.23 (< OR =4)
[2022-04-27] MEDS ORDERED: GI COCKTAIL 50ML BTL(HYOSCYAMINE/MAALOX/LIDOCAINE VISCOUS)(1:3:1) PO ONE (06:30)
[2022-04-27 07:01] LABS: CK-MB VALUE MASS < 1.0 NG/ML (<3.6); CPK CREATINE PHOSPHOKINASE 76 U/L (26-192); MB/CK RELATIVE INDEX 1.32 (< OR =4)
[2022-04-27] MEDS ORDERED: SUCR1TA PO (07:46)
[2022-04-27] MEDS ORDERED: OMEP40CA4 PO (07:46)
[2022-04-27 08:16] VITALS: BP 105/61
== END 2022-04-27 08:19 | disposition home or self-care (01) ==
LOC: M ED 03:35
DX: R07.9 Chest pain, unspecified (principal); M54.50 Low back pain, unspecified; F17.200 Nicotine dependence, unspecified, uncomplicated; Z91.041 Radiographic dye allergy status; Z91.040 Latex allergy status

== ENCOUNTER 2022-05-02 23:22 | Day surgery (SDC) | payer BC, OTHER ==
[~2022-05-02] VITALS: Ht 154.9 cm; Wt 87.0 kg
[~2022-05-02 23:22] MED LIST changes: +OMEP40CA4 PO; +SUCR1TA PO
[2022-05-03] VITALS (11 sets, daily range): BP systolic 92–117; BP diastolic 52–70
[2022-05-03] MEDS ORDERED: MORPHINE 4 MG/ML 1ML VIAL/SYRINGE IV ONE ×2 (00:10→02:30)
[2022-05-03 00:12] LABS: BASO # 0.1 10^3/uL (0.0-0.2); BASO % 0.8 % (0.0-1.0); EOS # 0.5 10^3/uL (0.0-0.5); EOS % 4.2 % (0.0-3.0); HEMOGLOBIN 14.4 g/dl (12.0-15.5); LYMPH % 26.1 % (24.0-44.0); MEAN CORPUSCULAR HEMOGLOBIN 30.1 pg (27.0-33.0); MEAN CORPUSCULAR HGB CONC 33.5 g/dl (32.0-36.5); MONO # 0.8 10^3/uL (0.0-0.8); MONO % 7.1 % (2.0-8.0); NEUTROPHILS # 7.1 10^3/uL (1.5-8.5); NEUTROPHILS % 61.5 % (36.0-66.0); PLATELET COUNT, AUTOMATED 383 10^3/uL (150-450); RED BLOOD COUNT 4.78 10^6/uL (4.00-5.40); WHITE BLOOD COUNT 11.5 10^3/uL (4.0-10.0)
[2022-05-03 00:42] LABS: ALBUMIN 3.6 GM/DL (3.2-5.2); ALT/SGPT 38 U/L (12-78); BILIRUBIN,TOTAL < 0.1 MG/DL (0.2-1.0); BLOOD UREA NITROGEN 13 MG/DL (7-18); CALCIUM LEVEL 9.4 MG/DL (8.5-10.1); CARBON DIOXIDE LEVEL 26 MEQ/L (21-32); CHLORIDE LEVEL 104 MEQ/L (98-107); CREATININE FOR GFR 0.79 MG/DL (0.55-1.30); GLOMERULAR FILTRATION RATE > 60.0 (>58); GLUCOSE, FASTING 112 MG/DL (70-100); LIPASE 163 U/L (73-393); MAGNESIUM LEVEL 2.4 MG/DL (1.8-2.4); POTASSIUM SERUM 4.2 MEQ/L (3.5-5.1); SODIUM LEVEL 137 MEQ/L (136-145); TOTAL PROTEIN 7.4 GM/DL (6.4-8.2)
[2022-05-03 00:44] LABS: CK-MB VALUE MASS < 1.0 NG/ML (<3.6); CPK CREATINE PHOSPHOKINASE 80 U/L (26-192); MB/CK RELATIVE INDEX 1.25 (< OR =4)
[2022-05-03] MEDS ORDERED: ONDANSETRON 4MG 2ML VIAL IV ONE (01:00)
[2022-05-03] MEDS ORDERED: PIPERACILLIN/TAZOBACTAM SOD 4.5 GM in D5W MINI-BAG PLUS 50 ML IV ONE (01:15)
[2022-05-03] MEDS ORDERED: NS 1,000 ML IV ONE (01:35)
[2022-05-03 02:06] LABS: RSV AMPLIFICATION NEGATIVE (NEGATIVE)
[2022-05-03] MEDS ORDERED: MORPHINE 2 MG/ML 1ML VIAL IV PRN ×2 (03:25→17:50)
[2022-05-03] MEDS ORDERED: KETOROLAC 30 MG/ML 1ML VIAL IV PRN (03:25)
[2022-05-03] MEDS: KCL 20MEQ IN D5/0.45NS 1000ML 1,000 ML IV SCH ×3 (03:25→18:52)
[2022-05-03] MEDS ORDERED: MONT10TA97 PO (03:37)
[2022-05-03] MEDS ORDERED: LEXA1TAB2 PO (03:37)
[2022-05-03] MEDS ORDERED: HOME MED LIST COMPLETE! XX SCH (03:40)
[2022-05-03] MEDS: PIPERACILLIN/TAZOBACTAM SOD 3.375 GM in D5W MINI-BAG PLUS 50 ML IV SCH ×3 (08:18→20:08)
[2022-05-03] MEDS: ONDANSETRON 4MG 2ML VIAL IV PRN ×2 (09:29→20:11)
[2022-05-03] MEDS ORDERED: ROCURONIUM BROMIDE 50 MG/5 ML VIAL As Ordered ONE (15:51)
[2022-05-03] MEDS ORDERED: MIDAZOLAM INJ 2MG/2ML VIAL (J2250 PER 1MG) As Ordered ONE (15:51)
[2022-05-03] MEDS ORDERED: ONDANSETRON 4MG 2ML VIAL As Ordered ONE (15:51)
[2022-05-03] MEDS ORDERED: BUPIVACAINE HCL 0.25% 30ML VIAL As Ordered ONE (15:51)
[2022-05-03] MEDS ORDERED: LIDOCAINE 2% 100MG/5ML SDV (FOR ANES.) As Ordered ONE (15:51)
[2022-05-03] MEDS ORDERED: fentaNYL 100 MCG/2 ML INJECTION As Ordered ONE (15:51)
[2022-05-03] MEDS ORDERED: dexameTHASONE 4 MG/ML 1ML VIAL (J1100 PER 1MG) As Ordered ONE (15:51)
[2022-05-03] MEDS ORDERED: propofoL 200 MG/20 ML VIAL As Ordered ONE (15:51)
[2022-05-03] MEDS ORDERED: ACETAMINOPHEN 1000MG 100ML IV BTL (OFIRMEV) (J0131 PER 10MG) As Ordered ONE (16:28)
[2022-05-03] MEDS ORDERED: SUGAMMADEX SODIUM 500 MG/5 ML VIAL (BRIDION) As Ordered ONE (16:29)
[2022-05-03] MEDS ORDERED: KETOROLAC 60MG 2ML VIAL As Ordered ONE (16:35)
[2022-05-03] MEDS ORDERED: fentaNYL 100 MCG/2 ML INJECTION IV PRN (17:50)
[2022-05-03] MEDS ORDERED: LR 1,000 ML IV SCH (17:50)
[2022-05-03] MEDS ORDERED: ACETAMINOPHEN TAB 650MG DOSE (2X325MG) PO PRN (17:50)
[2022-05-03] MEDS ORDERED: oxyCODONE 5MG TAB PO PRN (17:50)
[2022-05-03] MEDS ORDERED: METOCLOPRAMIDE INJ 10MG/2ML VIAL (J2765 PER 1) IV PRN (17:50)
[2022-05-03] MEDS ORDERED: ONDANSETRON 4MG 2ML VIAL IV PRN (17:50)
[2022-05-03] MEDS: IBUPROFEN 600MG TAB PO PRN (20:09)
[2022-05-04 00:30] VITALS: BP 108/66
[2022-05-04] MEDS: PIPERACILLIN/TAZOBACTAM SOD 3.375 GM in D5W MINI-BAG PLUS 50 ML IV SCH ×3 (02:17→14:56)
[2022-05-04] MEDS: KCL 20MEQ IN D5/0.45NS 1000ML 1,000 ML IV SCH ×2 (02:18→16:19)
[2022-05-04] MEDS: NORCO, ANEXSIA 5/325MG TABLET (HYDROcodone/ACETAMINOPHEN) PO PRN ×2 (03:23→16:40)
[2022-05-04 05:00] VITALS: BP 110/61
[2022-05-04] MEDS: IBUPROFEN 600MG TAB PO PRN (09:58)
[2022-05-04 10:00] VITALS: BP 111/65
[2022-05-04 14:00] VITALS: BP 111/64
[2022-05-04] MEDS ORDERED: HYDR-3715 PO (17:25)
== END 2022-05-04 18:26 | disposition home or self-care (01) ==
LOC: M ED 23:22 → M SDC 05-03 03:22 → ENRESERV 05-03 03:57 → M MSPAV 05-03 04:43 → M SDC 05-04 18:26
PROVIDERS: ATTEND Surgery
DX: K80.10 Calculus of gallbladder with chronic cholecystitis without obstruction (principal); J45.909 Unspecified asthma, uncomplicated; F17.210 Nicotine dependence, cigarettes, uncomplicated; Z91.040 Latex allergy status; Z91.041 Radiographic dye allergy status; Z88.8 Allergy status to other drugs, medicaments and biological substances; Z88.5 Allergy status to narcotic agent
CPT/HCPCS: 47562; 71045; 76705; 80053; 82550; 82553; 83605; 83690; 83735; 84484; 85025; 85379; 87631; 88304; 93005; 96361; 96365; 96366; 96375; 96376; 99284; J0131; J1100; J1885; J2250; J2270; J2405; J2543; J2765; J3010

== ENCOUNTER → 2022-05-27 | Outpatient (REF) | payer BC, OTHER ==
[~2022-05-27] MED LIST changes: +HYDR-3715 PO; +LEXA1TAB2 PO
== END ==
LOC: M SFHCPLAZ 16:47
PROVIDERS: ATTEND Physician Assistant
DX: R30.0 Dysuria (principal)

== ENCOUNTER → 2022-09-14 | Outpatient (REF) | payer BC, OTHER ==
[2022-09-14 19:24] LABS: GC DNA AMPLIFICATION NEGATIVE (NEGATIVE)
== END ==
LOC: M SFHCLERA 17:00
PROVIDERS: ATTEND Family Medicine
DX: R35.0 Frequency of micturition (principal); N89.8 Other specified noninflammatory disorders of vagina; R10.2 Pelvic and perineal pain; R39.15 Urgency of urination

== ENCOUNTER 2023-01-14 10:27 | Emergency (ER) | payer BC, OTHER ==
[~2023-01-14] VITALS: Ht 154.9 cm; Wt 72.7 kg
[2023-01-14 12:10] LABS: BASO # 0.1 10^3/uL (0.0-0.2); BASO % 0.8 % (0.0-1.0); EOS # 0.5 10^3/uL (0.0-0.5); EOS % 4.4 % (0.0-3.0); HEMATOCRIT 44.2 % (36.0-47.0); HEMOGLOBIN 14.7 g/dl (12.0-15.5); LYMPH % 16.1 % (24.0-44.0); MEAN CORPUSCULAR HEMOGLOBIN 30.7 pg (27.0-33.0); MEAN CORPUSCULAR HGB CONC 33.3 g/dl (32.0-36.5); MEAN CORPUSCULAR VOLUME 92.3 fl (80.0-96.0); MONO # 0.8 10^3/uL (0.0-0.8); MONO % 6.4 % (2.0-8.0); NEUTROPHILS # 8.9 10^3/uL (1.5-8.5); NEUTROPHILS % 71.9 % (36.0-66.0); PLATELET COUNT, AUTOMATED 326 10^3/uL (150-450); RED BLOOD COUNT 4.79 10^6/uL (4.00-5.40); WHITE BLOOD COUNT 12.3 10^3/uL (4.0-10.0)
[2023-01-14 12:42] LABS: INR 0.89; PROTHROMBIN TIME 12.2 SECONDS (12.5-14.5)
[2023-01-14 12:43] LABS: PARTIAL THROMBOPLASTIN TIME 24.7 SECONDS (24.8-34.2)
[2023-01-14 12:45] LABS: BLOOD UREA NITROGEN 11 MG/DL (9-23); CALCIUM LEVEL 8.8 MG/DL (8.5-10.1); CARBON DIOXIDE LEVEL 26 MMOL/L (20-31); CHLORIDE LEVEL 105 MMOL/L (98-107); CK-MB VALUE MASS < 1.0 NG/ML (<3.6); CREATININE FOR GFR 0.65 MG/DL (0.55-1.30); GLOMERULAR FILTRATION RATE > 60.0 (>58); GLUCOSE, FASTING 95 MG/DL (60-100); POTASSIUM SERUM 4.5 MMOL/L (3.5-5.1); SODIUM LEVEL 138 MMOL/L (136-145)
[2023-01-14 12:48] LABS: CPK CREATINE PHOSPHOKINASE 106 U/L (34-145); MB/CK RELATIVE INDEX 0.94 (< OR =4)
[2023-01-14] MEDS ORDERED: diphenhydrAMINE 50MG/ML VIAL IV STA (13:36)
[2023-01-14] MEDS ORDERED: methylPREDNISolone 125MG 2ML VIAL IV ONE (13:40)
[2023-01-14] MEDS ORDERED: FAMOTIDINE 20MG/2ML VIAL IVP ONE (13:40)
[2023-01-14 13:46] LABS: CK-MB VALUE MASS < 1.0 NG/ML (<3.6)
[2023-01-14 13:47] LABS: CPK CREATINE PHOSPHOKINASE 86 U/L (34-145); MB/CK RELATIVE INDEX 1.16 (< OR =4)
[2023-01-14] MEDS ORDERED: ONDANSETRON 4MG 2ML VIAL IV ONE (14:25)
[2023-01-14] MEDS ORDERED: NS 1,000 ML IV ONE (14:25)
[2023-01-14 14:54] LABS: LIPASE 29 U/L (12-53)
[2023-01-14 14:56] LABS: ALBUMIN 3.4 G/DL (3.2-5.2); ALKALINE PHOSPHATASE 99 U/L (46-116); ALT/SGPT 49 U/L (7.0-40); AST/SGOT 24 U/L (<34); BILIRUBIN,DIRECT < 0.1 MG/DL (<0.4); BILIRUBIN,TOTAL 0.3 MG/DL (0.3-1.2); TOTAL PROTEIN 6.7 G/DL (5.7-8.2)
[2023-01-14] MEDS ORDERED: ISOVUE-370 76% 100ML VIAL As Ordered ONE (15:06)
[2023-01-14] MEDS ORDERED: EPINEPHrine INJ 1 MG/ML 1ML AMP IM STA ×2 (15:21→15:28)
[2023-01-14] MEDS ORDERED: ALBUTEROL SULFATE 2.5MG/0.5ML INH NEB SOLN As Ordered ONE (15:22)
[2023-01-14] MEDS ORDERED: IPRATROPIUM 0.5MG/ALBUTEROL 2.5MG INH SOL UD 3ML (DUONEB) As Ordered ONE (15:22)
[2023-01-14] MEDS ORDERED: IPRATROPIUM 0.5MG/ALBUTEROL 2.5MG INH SOL UD 3ML (DUONEB) NEB ONE (15:25)
[2023-01-14] MEDS ORDERED: ALBUTEROL SULFATE 2.5MG/0.5ML INH NEB SOLN INH ONE (15:25)
[2023-01-14] MEDS ORDERED: ONDA4TAB6 PO (16:37)
[2023-01-14] MEDS ORDERED: BENA25CA4 PO (16:39)
[2023-01-14] MEDS ORDERED: PRED20TA PO (16:39)
[2023-01-14] MEDS ORDERED: PEPC1TAB5 PO (16:40)
[2023-01-14 16:50] VITALS: BP 121/66
== END 2023-01-14 17:42 | disposition home or self-care (01) ==
LOC: M ED 10:27
DX: T78.40XA Allergy, unspecified, initial encounter (principal); R07.9 Chest pain, unspecified; R11.10 Vomiting, unspecified; E78.5 Hyperlipidemia, unspecified; K21.9 Gastro-esophageal reflux disease without esophagitis; I10 Essential (primary) hypertension; F17.200 Nicotine dependence, unspecified, uncomplicated; Z88.8 Allergy status to other drugs, medicaments and biological substances; Z91.041 Radiographic dye allergy status; Z91.040 Latex allergy status; Z79.52 Long term (current) use of systemic steroids; Z79.83 Long term (current) use of bisphosphonates; Z79.899 Other long term (current) drug therapy
CPT/HCPCS: 71045; 71275; 74177; 80048; 80076; 82550; 82553; 83690; 84484; 85025; 85610; 85730; 93005; 93041; 94640; 94760; 96361; 96372; 96375; 99285; J0171; J1200; J2405; J2930; Q9967; S0028

== ENCOUNTER 2023-09-04 22:39 | Emergency (ER) | payer BC, OTHER, SELFPAY ==
[~2023-09-04] VITALS: Ht 167.6 cm; Wt 75.0 kg
[~2023-09-04 22:39] MED LIST changes: +BENA25CA4 PO; +PRED20TA PO
[2023-09-04] MEDS ORDERED: NS 1,000 ML IV ONE (23:00)
[2023-09-04 23:18] VITALS: TEMP 98.1
[2023-09-04 23:41] LABS: BASO # 0.1 10^3/uL (0.0-0.2); BASO % 1.2 % (0.0-1.0); EOS # 0.4 10^3/uL (0.0-0.5); EOS % 4.5 % (0.0-3.0); HEMATOCRIT 44.3 % (36.0-47.0); HEMOGLOBIN 14.9 g/dl (12.0-15.5); LYMPH # 3.1 10^3/uL (1.5-5.0); LYMPH % 32.2 % (24.0-44.0); MEAN CORPUSCULAR HEMOGLOBIN 30.4 pg (27.0-33.0); MEAN CORPUSCULAR HGB CONC 33.6 g/dl (32.0-36.5); MEAN CORPUSCULAR VOLUME 90.4 fl (80.0-96.0); MONO # 0.5 10^3/uL (0.0-0.8); NEUTROPHILS # 5.4 10^3/uL (1.5-8.5); NEUTROPHILS % 56.8 % (36.0-66.0); PLATELET COUNT, AUTOMATED 362 10^3/uL (150-450); WHITE BLOOD COUNT 9.5 10^3/uL (4.0-10.0)
[2023-09-04 23:47] VITALS: BP 127/77; O2SAT 98
[2023-09-05 00:12] LABS: ETHYL ALCOHOL (ETHANOL) 0.139 % (0.000-0.010); HCG, SERUM QUALITATIVE NEGATIVE (NEGATIVE)
[2023-09-05 00:13] LABS: SALICYLATE LEVEL < 3.0 MG/DL (<30)
[2023-09-05 00:14] LABS: ALBUMIN 3.4 G/DL (3.2-5.2); ALKALINE PHOSPHATASE 83 U/L (46-116); ALT/SGPT 30 U/L (7.0-40); AST/SGOT 15 U/L (<34); BILIRUBIN,DIRECT < 0.1 MG/DL (<0.4); BILIRUBIN,TOTAL 0.2 MG/DL (0.3-1.2); BLOOD UREA NITROGEN 10 MG/DL (9-23); CALCIUM LEVEL 8.6 MG/DL (8.5-10.1); CARBON DIOXIDE LEVEL 22 MMOL/L (20-31); CHLORIDE LEVEL 112 MMOL/L (98-107); CREATININE FOR GFR 0.55 MG/DL (0.55-1.30); GLOMERULAR FILTRATION RATE > 60.0 (>58); GLUCOSE, FASTING 106 MG/DL (60-100); POTASSIUM SERUM 3.9 MMOL/L (3.5-5.1); SODIUM LEVEL 143 MMOL/L (136-145); TOTAL PROTEIN 6.9 G/DL (5.7-8.2)
[2023-09-05 00:16] LABS: THYROID STIMULATING HORMONE 4.727 uIU/ML (0.55-4.78)
[2023-09-05 00:22] LABS: CPK CREATINE PHOSPHOKINASE 115 U/L (34-145)
== END 2023-09-05 03:34 | disposition left against medical advice (07) ==
LOC: M ED 22:39 → EDBD 22:39 → M ED 09-05 03:34
DX: Z53.21 Procedure and treatment not carried out due to patient leaving prior to being seen by health care provider (principal)

== ENCOUNTER 2024-04-04 11:33 | Emergency (ER) | payer BC, OTHER, SELFPAY ==
[~2024-04-04] VITALS: Ht 154.9 cm; Wt 82.0 kg
[~2024-04-04 11:33] MED LIST changes: +ONDA-282 PO; -ONDA4TAB6 PO
[2024-04-04] MEDS ORDERED: ALBU8.5H (11:40)
[2024-04-04] MEDS ORDERED: PERI0.126 PO (14:48)
[2024-04-04] MEDS ORDERED: HYDR-4571 PO (14:48)
[2024-04-04] MEDS ORDERED: AMOX875T2 PO (14:52)
[2024-04-04 14:58] VITALS: BP 139/87; TEMP 98.4; O2SAT 98
== END 2024-04-04 14:59 | disposition home or self-care (01) ==
LOC: M ED 11:33
DX: K02.9 Dental caries, unspecified (principal); C55 Malignant neoplasm of uterus, part unspecified; K21.9 Gastro-esophageal reflux disease without esophagitis; F17.200 Nicotine dependence, unspecified, uncomplicated; Z86.711 Personal history of pulmonary embolism; Z88.5 Allergy status to narcotic agent; Z88.8 Allergy status to other drugs, medicaments and biological substances; Z91.040 Latex allergy status; Z91.041 Radiographic dye allergy status; Z91.09 Other allergy status, other than to drugs and biological substances; Z79.52 Long term (current) use of systemic steroids; Z79.2 Long term (current) use of antibiotics; Z79.899 Other long term (current) drug therapy

== ENCOUNTER → 2025-01-21 | Outpatient (CLI) | payer OTHER ==
[~2025-01-21] MED LIST changes: +ALBU8.5H; +AMOX875T2 PO; +HYDR-4571 PO; +PERI0.126 PO
[2025-01-21 10:50] LABS: BASO # 0.1 10^3/uL (0.0-0.2); BASO % 0.9 % (0.0-1.0); EOS # 0.3 10^3/uL (0.0-0.5); EOS % 2.9 % (0.0-3.0); HEMATOCRIT 46.2 % (36.0-47.0); HEMOGLOBIN 15.2 g/dl (12.0-15.5); LYMPH # 2.9 10^3/uL (1.5-5.0); LYMPH % 29.9 % (24.0-44.0); MEAN CORPUSCULAR HEMOGLOBIN 29.9 pg (27.0-33.0); MEAN CORPUSCULAR HGB CONC 32.9 g/dl (32.0-36.5); MEAN CORPUSCULAR VOLUME 90.9 fl (80.0-96.0); MONO # 0.5 10^3/uL (0.0-0.8); MONO % 5.4 % (2.0-8.0); NEUTROPHILS # 5.9 10^3/uL (1.5-8.5); NEUTROPHILS % 60.6 % (36.0-66.0); PLATELET COUNT, AUTOMATED 283 10^3/uL (150-450); RED BLOOD COUNT 5.08 10^6/uL (4.00-5.40); WHITE BLOOD COUNT 9.7 10^3/uL (4.0-10.0)
[2025-01-21 11:10] LABS: HEMOGLOBIN A1c 5.2 % (4.0-6.0)
[2025-01-21 11:14] LABS: TOTAL IRON BINDING CAPACITY 286 UG/DL (250-425)
[2025-01-21 11:15] LABS: ALBUMIN 3.7 G/DL (3.2-5.2); ALKALINE PHOSPHATASE 81 U/L (35-104); ALT/SGPT 22 U/L (7.0-40); AST/SGOT 11 U/L (<34); BILIRUBIN,TOTAL 0.4 MG/DL (0.3-1.2); BLOOD UREA NITROGEN 8 MG/DL (9-23); CALCIUM LEVEL 9.3 MG/DL (8.5-10.1); CARBON DIOXIDE LEVEL 24 MMOL/L (20-31); CHLORIDE LEVEL 108 MMOL/L (98-107); CHOLESTEROL LEVEL 233 MG/DL (<200); CHOLESTEROL RISK RATIO 4.59 (<5); CREATININE FOR GFR 0.67 MG/DL (0.55-1.30); GLOMERULAR FILTRATION RATE > 90.0 (>58); GLUCOSE, FASTING 88 MG/DL (60-100); HDL CHOLESTEROL 50.7 MG/DL (>40); IRON (FE) 100 UG/DL (50-170); LDL CHOLESTEROL 145.7 MG/DL (<100); NON-HDL-C 182.3 MG/DL; POTASSIUM SERUM 4.1 MMOL/L (3.5-5.1); SODIUM LEVEL 139 MMOL/L (136-145); TOTAL PROTEIN 6.8 G/DL (5.7-8.2); TRIGLYCERIDES LEVEL 183 MG/DL (<150)
[2025-01-21 11:16] LABS: THYROID STIMULATING HORMONE 3.993 uIU/ML (0.55-4.78); TOTAL 25(OH) VITAMIN D 11.3 NG/ML (20.0-100.0)
[2025-01-21 11:17] LABS: FERRITIN 51.7 NG/ML (7.3-270.7); FREE T4 0.93 NG/DL (0.89-1.76)
== END ==
LOC: M LAB 09:30
PROVIDERS: ATTEND Family Medicine
DX: R53.82 Chronic fatigue, unspecified (principal)

== ENCOUNTER 2025-08-22 17:22 | Emergency (ER) | payer OTHER, SELFPAY ==
[~2025-08-22] VITALS: Ht 154.9 cm; Wt 78.4 kg
== END 2025-08-22 17:32 | disposition left against medical advice (07) ==
LOC: EDBD 17:22 → M ED 17:22
DX: Z53.21 Procedure and treatment not carried out due to patient leaving prior to being seen by health care provider (principal)